=== PATIENT | male | born 1960 | race Asian ===

== ENCOUNTER 2023-07-03 14:07 | Outpatient (CLI) | payer BC | END 2023-07-03 14:08 | disposition home or self-care (01) | LOC: BICRAD 14:07 | PROVIDERS: ATTEND Family Medicine | DX: R76.12 Nonspecific reaction to cell mediated immunity measurement of gamma interferon antigen response without active tuberculosis (principal) | CPT/HCPCS: 71046 ==

== ENCOUNTER 2023-08-12 16:45 | Outpatient (CLI) | payer BC | END 2023-08-12 16:46 | disposition home or self-care (01) | LOC: SCSRAD 16:45 | PROVIDERS: ATTEND Physician Assistant | DX: S30.0XXA Contusion of lower back and pelvis, initial encounter (principal); M47.816 Spondylosis without myelopathy or radiculopathy, lumbar region | CPT/HCPCS: 72100 ==